=== PATIENT | male | born 2000 | race Caucasian/White ===

== ENCOUNTER 2025-01-02 06:06 | Day surgery (SDC) | payer OTHER ==
[~2025-01-02] VITALS: Ht 152.4 cm; Wt 34.5 kg
[2025-01-02] MEDS ORDERED: RINGERS SOLUTION,LACTATED 1,000 ML IV ONE ×2 (06:30→07:29)
[2025-01-02 07:20] LABS: PLATELET COUNT (AUTO) 164 K/uL (150-450); RED BLOOD CELL COUNT(AUTO) 4.74 MIL/uL (4.50-5.90); RED CELL DISTRIBUTION WIDTH 12.4 % (11.5-14.5); WHITE BLOOD COUNT (AUTO) 5.2 K/uL (4.5-11.0)
[2025-01-02 07:28] LABS: CALCIUM, TOTAL 8.3 mg/dL (8.8-10.5); CREATININE 0.55 mg/dL (0.60-1.30); GLOMERULAR FILTR. RATE CALC > 60 mL/min (>60); GLUCOSE,RANDOM 90 mg/dL (70-110); SODIUM SERUM 140 mmol/L (136-145); UREA NITROGEN, BLOOD 9 mg/dL (7-18)
[2025-01-02 07:33] LABS: ASPARTATE AMINOTRANSFERASE 17 U/L (15-37); TOTAL PROTEIN, SERUM 7.5 g/dL (6.4-8.2)
[2025-01-02] MEDS ORDERED: AMPICILLIN SODIUM 2 GM/NS 100 ML IV ONE (07:53)
[2025-01-02] MEDS: RINGERS SOLUTION,LACTATED 1,000 ML IV ONE (07:56)
[2025-01-02] MEDS ORDERED: BACITRACIN 28 GM OINTMENT TP ONE (09:47)
[2025-01-02] MEDS ORDERED: PHEN30TA50 PO (11:13)
[2025-01-02] MEDS ORDERED: PROPOFOL 1% 20 ML VIAL IVP ONE (16:42)
[2025-01-02] MEDS ORDERED: SUGAMMADEX SODIUM 200 MG/2 ML VIAL IVP ONE (16:42)
[2025-01-02] MEDS ORDERED: DEXAMETHASONE SOD PHOS 4 MG/ML VIAL ONE (16:42)
[2025-01-02] MEDS ORDERED: ONDANSETRON HCL 4 MG/2 ML VIAL ONE (16:42)
[2025-01-02] MEDS ORDERED: LIDOCAINE/PF 2% 5 ML VIAL ONE (16:42)
[2025-01-02] MEDS ORDERED: ROCURONIUM BROMIDE 10 MG/ML 5 ML VIAL ONE (16:42)
== END 2025-01-02 11:45 | disposition home or self-care (01) ==
LOC: SDS 06:06
PROVIDERS: ATTEND Dentist General Practice
DX: K05.6 Periodontal disease, unspecified (principal); K02.9 Dental caries, unspecified; K05.20 Aggressive periodontitis, unspecified; K03.6 Deposits [accretions] on teeth; G80.9 Cerebral palsy, unspecified
CPT/HCPCS: 41899; 71045; 80053; 85025; 85610; 85730; 36415; 93005; J0290; J2704; J1100; J3490 ×3; J2405; J7120